=== PATIENT | male | born 1930 | race Caucasian/White ===

== ENCOUNTER 2017-04-15 10:46 | Emergency (ER) | payer OTHER, MEDICARE ==
[~2017-04-15] VITALS: Ht 170.2 cm; Wt 81.6 kg
[~2017-04-15 10:46] MED LIST: CIPROFLOXACIN500 MG PO; DILAUDID2 M1 PO; DIVALPROEX SOD500 M2 PO; FLOMAX(MONOGRA0.4 MG PO; LISINOPRIL AND1 TAB PO; NORVASC5 M1 PO; PERCOCET 325 MG1 TA2 PO; SAW PALMETTO160 M1 PO; TEMAZEPAM15 M1 PO; VITAB121000 PO; VITAMIN B6100 MG PO; VITAMIN C500 M3 PO; VITAMIN D31000 UNI2 PO
--- NOTE | 2017-04-15 11:06 | ED GENERAL ADULT ---
History of Present Illness General Chief Complaint: General Adult Stated Complaint: BIBA FOR GENERAL WERAKNESS Source: patient Exam Limitations: no limitations Allergies Coded Allergies: NO KNOWN ALLERGIES (03/26/13) Reconcile Medications Amlodipine Besylate (Norvasc) 5 MG TABLET 1 TAB PO DAILY HTN (Reported) Cholecalciferol (Vitamin D3) 1,000 UNIT TABLET 1 TAB PO DAILY VITAMIN SUPPORT (Reported) Divalproex Sodium 500 MG TABLET.DR 1 TAB PO DAILY LEG TREMOR (Reported) Hydromorphone HCl (Dilaudid) 2 MG TABLET 1 TAB PO BID PAIN (Reported) Lisinopril 10 MG TABLET 1 TAB PO DAILY HEART (Reported) Naloxegol Oxalate (Movantik) 25 MG TABLET 1 TAB PO DAILY GI (Reported) Sennosides/Docusate Sodium (Senna S Tablet) 8.6 MG-50 MG TABLET 1 TAB PO DAILY CONSTIPATION (Reported) Temazepam 15 MG CAPSULE 1 CAP PO QPM SLEEP (Reported) Triage Note: 87 Y/O MALE BIBA FROM HOME FOR EVAL OF LIGHTHEADEDNESS AND DIZZINESS X "FEW DAYS". PT STATES "I JUST DONT FEEL GOOD". PER , PT HAS BEEN EATING AND DRINKING WELL; HAVE INCREASED PO FLUIDS OVER THE LAST FEW DAYS WITH NO CHANGE IN SYMPTOMS. PT DENIES PAIN. DENIES RECENT FALLS. DENIES COUGH, SOB OR URI SYMPTOMS. RESIDENT INTO EVAL Triage Nurses Notes Reviewed? yes Onset: Gradual Duration: day(s): (2) Timing: multiple episodes today Injury Environment: home Severity: moderate No Modifying Factors: none HPI: 87 yo M with PMH of pancreatic cancer, hypertension presents to the ED with concerns of lightheadedness and dizziness for the past two days. The patient states that he has been doing well for the most part but since the past two days he has been feeling more weak and lightheaded. The symptoms are present all day and worsen with walking. He uses a walker. The states that she thought the patient may be dehydrated and she gave him extra fluids to drink. He has a good appetite. No other symptoms or concerns expressed by the family or the patient. He has opted for no intervention for his pancreatic cancer. (Selin CARRIZALES,Mary) Vital Signs & Intake/Output Vital Signs & Intake/Output Vital Signs Date Time Temp Pulse Resp B/P B/P Pulse O2 O2 Flow FiO2 Mean Ox Delivery Rate 04/15 1628 97.2 77 18 135/63 95 Room Air 04/15 1548 97.8 79 18 142/77 95 Room Air 04/15 1227 66 154/75 04/15 1122 Room Air 04/15 1047 98.0 73 22 154/79 96 Room Air (Justine CARRIZALES,Chicho Guillory) Past History Travel History Traveled to [place] past 21 day No Medical History Any Pertinent Medical History? see below for history Neurological: tremor left leg EENT: NONE Cardiovascular: hypertension Respiratory: NONE Gastrointestinal: NONE Hepatic: NONE Renal: NONE Musculoskeletal: chronic back pain Psychiatric: NONE Endocrine: NONE Blood Disorders: NONE Cancer(s): pancreatic cancer DISABILITY INSURANCE CLAIM EXAMINER/Reproductive: NONE Surgical History Surgical History: cervical fusion lumbar laminectomy craniotomy Psychosocial History What is your primary language Iranian Tobacco Use: Never used Family History Hx Contributory? No (Mary Smallwood MD) Review of Systems Review of Systems Constitutional: Denies: chills, fever. EENTM: Denies: throat pain. Respiratory: Denies: cough, short of breath. Cardiovascular: Denies: chest pain, palpitations. GI: Denies: abdominal pain, nausea. Genitourinary: Reports: no symptoms. Musculoskeletal: Denies: back pain, joint pain. Skin: Reports: no symptoms. Neurological/Psychological: Reports: no symptoms. (Mary Smallwood MD) Physical Exam Physical Exam General Appearance: well developed/nourished, no apparent distress, alert, awake Head: atraumatic, normal appearance Eyes: Bilateral: normal appearance. Ears, Nose, Throat: normal ENT inspection Neck: normal inspection Respiratory: normal breath sounds, chest non-tender, lungs clear Cardiovascular: regular rate/rhythm Gastrointestinal: soft, non-tender Extremities: no edema Neurologic/Psych: awake, alert, oriented x 3 Core Measures ACS in differential dx? No CVA/TIA Diagnosis: No Sepsis Present: No Sepsis Focused Exam Completed? No (Mary Smallwood MD) Progress Differential Diagnoses I considered the following diagnoses in my evaluation of the patient: [ orthostatic hypotension, dehydration, anemia] Initial ED EKG: NSR (Mary Smallwood MD) Plan of Care: Orders Procedure Date/time Status Regular Diet 04/15 L Active PT Evaluate & Treat 04/15 1454 Active MISTAKE 04/15 1112 Active URINALYSIS 04/15 110 Complete COMPREHENSIVE METABOLIC PANEL 04/15 110 Complete CBC WITHOUT DIFFERENTIAL 04/15 1105 Complete Laboratory Tests 04/15/17 1448: Urine Color YEL, Urine Clarity CLEAR, Urine pH 6.5, Ur Specific [place] 1.015, Urine Protein NEG, Urine Ketones NEG, Urine Nitrite NEG, Urine Bilirubin NEG, Urine Urobilinogen 1.0, Ur Leukocyte Esterase NEG, Ur Microscopic EXAM NOT REQUIRED, Urine Hemoglobin NEG, Urine Glucose NEG 04/15/17 1125: Anion Gap 12, Estimated GFR > 60, BUN/Creatinine Ratio 33.3 H, Glucose 142 H, Calcium 9.7, Total Bilirubin 0.8, AST 18, ALT 18 L, Alkaline Phosphatase 57, Total Protein 7.4, Albumin 3.9, Globulin 3.5, Albumin/Globulin Ratio 1.1 04/15/17 110: CBC w Diff NO MAN DIFF REQ, RBC 4.49 L, MCV 99.2 H, MCH 33.9 H, MCHC 34.2, RDW 13.2, MPV 8.5, Gran % 63.9, Lymphocytes % 26.5, Monocytes % 8.5, Eosinophils % 0.7, Basophils % 0.4, Absolute Granulocytes 5.0, Absolute Lymphocytes 2.0, Absolute Monocytes 0.7 H, Absolute Eosinophils 0.1, Absolute Basophils 0 (Justine CARRIZALES,Chicho Guillory) Departure Departure Time of Disposition: 1636 Disposition: HOME OR SELF CARE Condition: Stable Clinical Impression Primary Impression: Dizziness Referrals: Yumiko CARRIZALES,Shreyas Chicas (PCP/Family) Additional Instructions: Please follow up with your primary care physician within one week of discharge. Please return to the ED for any worsening symptoms or concerns. Departure Forms: Customer Survey General Discharge Information (Mary Smallwood MD) Resident Co-Sign Statement Statement: ED Attending supervision documentation- [X] I saw and evaluated the patient. I have also reviewed all the pertinent lab results and diagnostic results. I agree with the findings and the plan of care as documented in the Resident's documentation. [] I have reviewed the ED Record and agree with the Resident's documentation. [] Additions or exceptions (if any) to the Resident's note and plan are summarized below: [] (Justine CARRIZALES,Chicho Guillory) Critical Care Note Critical Care Note Critical Care Time: non-applicable (Selin CARRIZALES,Mary)
[2017-04-15 11:57] LABS: ABSOLUTE BASOPHIL COUNT 0 /CUMM (0.0-0.2); ABSOLUTE EOSINOPHIL COUNT 0.1 /CUMM (0.0-0.7); ABSOLUTE MONOCYTE COUNT 0.7 /CUMM (0.10-0.60); BASOPHIL % 0.4 % (0.0-2.0); EOSINOPHIL % 0.7 % (0-5); GRANULOCYTE % 63.9 % (42.2-75.2); HEMATOCRIT 44.6 % (42-52); MEAN CORPUSCULAR HGB 33.9 PG (27.0-31.0); MEAN CORPUSCULAR HGB CONC 34.2 G/DL (33.0-37.0); MEAN CORPUSCULAR VOLUME 99.2 FL (80.0-94.0); MEAN PLATELET VOLUME 8.5 FL (7.4-10.4); PLATELET COUNT 224 /CUMM (130-400); RBC DISTRIBUTION WIDTH 13.2 % (11.5-14.5); RED BLOOD CELL CT 4.49 /CUMM (4.70-6.10); WHITE BLOOD CELL COUNT 7.8 /CUMM (4.8-10.8)
[2017-04-15] MEDS ORDERED: MOVANTIK25 M1 PO (12:41)
[2017-04-15] MEDS ORDERED: LISINOPRIL10 M1 PO (12:41)
[2017-04-15] MEDS ORDERED: SENNA S TABLET1 EACH PO (12:42)
[2017-04-15 16:28] VITALS: BP 135/63
== END 2017-04-15 17:07 ==
LOC: ERH 10:46
PROVIDERS: Internal Medicine
DX: R42 Dizziness and giddiness (principal)
CPT/HCPCS: 81003

== ENCOUNTER 2017-04-25 09:49 | Inpatient (IN) | payer OTHER, MEDICARE ==
[~2017-04-25] VITALS: Ht 170.2 cm; Wt 79.0 kg
[~2017-04-25 09:49] MED LIST changes: +LISINOPRIL10 M1 PO; +MOVANTIK25 M1 PO; +SENNA S TABLET1 EACH PO
--- NOTE | 2017-04-25 10:34 | ED MVC/FALL/TRAUMA COMPLAINT ---
See Addendum History of Present Illness General Chief Complaint: Fall Stated Complaint: FALL Source: patient, family Exam Limitations: no limitations Vital Signs & Intake/Output Vital Signs & Intake/Output Vital Signs Date Time Temp Pulse Resp B/P B/P Pulse O2 O2 Flow FiO2 Mean Ox Delivery Rate 04/25 1417 98.1 74 18 142/67 98 Room Air 04/25 1310 98.2 66 18 140/70 98 Room Air 04/25 1153 97.9 68 18 138/74 98 Room Air 04/25 1100 98 Room Air 04/25 1001 97.7 70 18 143/74 96 Room Air Allergies Coded Allergies: NO KNOWN ALLERGIES (03/26/13) Reconcile Medications Amlodipine Besylate (Norvasc) 5 MG TABLET 1 TAB PO DAILY HTN (Reported) Cholecalciferol (Vitamin D3) 1,000 UNIT TABLET 1 TAB PO DAILY VITAMIN SUPPORT (Reported) Divalproex Sodium 500 MG TABLET.DR 1 TAB PO DAILY LEG TREMOR (Reported) Hydromorphone HCl (Dilaudid) 2 MG TABLET 1 TAB PO BID PAIN (Reported) Lisinopril 10 MG TABLET 1 TAB PO DAILY HEART (Reported) Naloxegol Oxalate (Movantik) 25 MG TABLET 1 TAB PO DAILY GI (Reported) Sennosides/Docusate Sodium (Senna S Tablet) 8.6 MG-50 MG TABLET 1 TAB PO DAILY CONSTIPATION (Reported) Temazepam 15 MG CAPSULE 1 CAP PO QPM SLEEP (Reported) Triage Note: BIBA FROM HOME, C/O WEAKNESS AND DIZZINESS X A "FEW WEEKS", FELL LAST NIGHT OUT OF CHAIR. LANDED ON LEFT ARM. DENIES CHEST PAIN OR SOB. HX OF PANCREATIC CANCER, WAS ON HOME HOSPICE BUT DC\\D. Triage Nurses Notes Reviewed? yes Onset: Gradual Duration: constant Timing: recent history Severity: moderate Severity Numbers: 5 Loss of Consciousness: no loss of consciousness HPI: Patient is a 87-year-old male with a past medical history of known pancreatic cancer, hypertension who was evaluated at [facility] emergency room on April 15 for concerns of lightheaded sensation and dizziness patient was evaluated and was safely discharged however patient was brought in by ambulance stating that since his evaluation at [facility] emergency room he he has still been complaining of dizziness and general his weakness however yesterday while getting up from a chair he fell forward striking his head to the floor and his left elbow to piece of furniture resulting in skin tears. Patient was unable to get up on his own where EMS arrived to his residency helped patient up and the patient was advised to present to the emergency room however he declines transfer. Patient states that he was too weak to get out of bed today where EMS was called. Patient currently denies any fever chills chest pain and arm pain jaw pain nausea vomiting leg swelling or hemoptysis cough shortness of breath dysuria hematuria or pain. Patient states that in 2000 he had a meningioma resection and since has had right-sided body paresthesia and diminished sensation since. (Rolf Dwyer) Past History Travel History Traveled to [place] past 21 day No Medical History Any Pertinent Medical History? see below for history Neurological: tremor left leg EENT: NONE Cardiovascular: hypertension Respiratory: NONE Gastrointestinal: NONE Hepatic: NONE Renal: NONE Musculoskeletal: chronic back pain Psychiatric: NONE Endocrine: NONE Blood Disorders: NONE Cancer(s): pancreatic cancer CHOIR DIRECTOR/Reproductive: NONE Surgical History Surgical History: cervical fusion lumbar laminectomy craniotomy Psychosocial History What is your primary language Serbian Tobacco Use: Never used ETOH Use: denies use Family History Hx Contributory? No (Rolf Dwyer) Review of Systems Review of Systems Constitutional: Reports: no symptoms. Eyes: Reports: no symptoms. Ears, Nose, Throat, Mouth: Reports: no symptoms. Respiratory: Reports: no symptoms. Cardiovascular: Reports: no symptoms. Gastrointestinal/Abdominal: Reports: no symptoms. Genitourinary: Reports: no symptoms. Musculoskeletal: Reports: see HPI. Skin: Reports: no symptoms. Neurological/Psychological: Reports: see HPI. All Other Systems: Reviewed and Negative (Rolf Dwyer) Physical Exam Physical Exam General Appearance: no apparent distress, alert, comfortable Head: atraumatic Eyes: Bilateral: normal appearance, PERRL, EOMI. Ears, Nose, Throat, Mouth: hearing grossly normal Neck: normal inspection, supple Respiratory: normal breath sounds, chest non-tender, no respiratory distress Cardiovascular: regular rate/rhythm Peripheral Pulses: 2+ radial (R) Gastrointestinal: normal bowel sounds, soft, GENERALIZED POINT TENDERNESS NOTED Extremities: evidence of injury Neurologic/Psych: no motor/sensory deficits Comments: Bilateral upper extremity and lower extremity nontender full active range of motion normal inspection Diagram Body: 1) Noted 4 cm superficial mildly gaping skin tear with full active range of motion with surrounding point tenderness and ecchymosis no active bleeding no exposed bone Core Measures ACS in differential dx? No CVA/TIA Diagnosis No Sepsis Present: No Sepsis Focused Exam Completed? No (Jaqui DIAZ,Rolf) Progress Differential Diagnosis: abd injury, C/T/L spine injury, ext injury, ICH, pelvis injury, pnemothorax, spinal cord injury Plan of Care: Orders Procedure Date/time Status Regular Diet 03 D Active Pathway - chart 04/25 1534 Active PT Evaluate & Treat 04/25 1531 Active Pathway - chart 04/25 1531 Active House Staff 04/25 1531 Active Code Status 04/25 1531 Active Patient Data 04/25 1518 Active OXYGEN SETUP (GEN) 04/25 1517 Active Saline Lock 04/25 1517 Active Admit to inpatient 04/25 1517 Active Vital Signs 04/25 1517 Active Activity/Ambulation 04/25 1517 Active Code Status 04/25 1517 Complete URINALYSIS 04/25 1039 Complete TROPONIN LEVEL 04/25 1039 Complete COMPREHENSIVE METABOLIC PANEL 04/25 1039 Complete CBC WITHOUT DIFFERENTIAL 04/25 1039 Complete EKG 04/25 1039 Active Intake & Output 04/25 1001 Active VTE Mechanical Prophylaxis 04/25 UNK Active Precautions 04/25 UNK Active Nutritional Intake, Monitor 04/25 UNK Active NUTRITIONAL CONSULT 04/25 UNK Active Current Medications Sig/Elaina Start time Last Medication Dose Stop Time Status Admin Temazepam 15 MG QPM 04/25 2200 AC (Restoril) Acetaminophen 650 MG Q6P PRN 04/25 1545 AC (Tylenol) Acetaminophen 1,000 MG Q6P PRN 04/25 1545 AC (Ofirmev) Docusate Sodium 100 MG BID PRN 04/25 1545 AC (Colace) Polyethylene Glycol 17 GM AT BEDTIME PRN 04/25 1545 AC (Miralax) Enoxaparin Sodium 40 MG DAILY 04/25 1531 AC (Lovenox) Senna/Docusate Sodium 1 TAB DAILY 04/25 1522 AC (Senokot S) Amlodipine Besylate 5 MG DAILY 04/25 1520 AC (Norvasc) Cholecalciferol 1,000 IU DAILY 04/25 1520 AC (Vitamin D) Divalproex Sodium 500 MG DAILY 04/25 1520 AC (Depakote) Hydromorphone HCl 2 MG BID 04/25 1520 AC (Dilaudid) Lisinopril 10 MG DAILY 04/25 1520 AC (Prinivil) Laboratory Tests 04/25/17 1308: Urine Color YEL, Urine Clarity CLEAR, Urine pH 7.0, Ur Specific [place] 1.015, Urine Protein NEG, Urine Ketones NEG, Urine Nitrite NEG, Urine Bilirubin NEG, Urine Urobilinogen 1.0, Ur Leukocyte Esterase NEG, Ur Microscopic EXAM NOT REQUIRED, Urine Hemoglobin NEG, Urine Glucose NEG 04/25/17 1055: Anion Gap 10, Estimated GFR > 60, BUN/Creatinine Ratio 18.6, Glucose 105 H, Calcium 9.6, Total Bilirubin 0.8, AST 14 L, ALT 14 L, Alkaline Phosphatase 66, Troponin I < 0.01, Total Protein 7.2, Albumin 3.7, Globulin 3.5, Albumin/ Globulin Ratio 1.1, CBC w Diff NO MAN DIFF REQ, RBC 4.42 L, MCV 100.0 H, MCH 33.5 H, MCHC 33.5, RDW 12.9, MPV 7.7, Gran % 55.7, Lymphocytes % 33.2, Monocytes % 8.7, Eosinophils % 1.7, Basophils % 0.7, Absolute Granulocytes 4.1, Absolute Lymphocytes 2.4, Absolute Monocytes 0.6, Absolute Eosinophils 0.1, Absolute Basophils 0 Patient upon initial presentation was alert and oriented no apparent distress clear lungs auscultation patient denies any pain however upon palpation of abdomen he was tender the patient has known pancreatic cancer. To the left elbow sterile water and peroxide was applied for cleaning of the skin tear wound using benzoin and Steri-Strips margins were revised There was a superficial skin abrasion adjacent to the region where bacitracin and Telfa was applied Javid wrap was then applied to left elbow pre-and post-neurovascular was intact x- rays were unremarkable for osseous injury Patient CT scan of head and cervical spine were unremarkable for acute injury or process. Patient and family member was discussed with with concerns of worsening pancreatic mass Nursing staff indicate that patient has profound weakness and is unable to get out of bed. No source of infection upon admission however patient is a significant fall risk and may require short-term placement Discussed admission with case management Diagnostic Imaging: Viewed by Me: CT Scan. Radiology Impression: SEE COMMENTS Initial ED EKG: normal intervals, normal p-waves, 70 NSR, Comments: PATIENT: KEITH KEENE PRESENT AGE: 87 PATIENT ACCOUNT NO: [id number] : 32 LOCATION: [facility] ORDERING PHYSICIAN: Rolf DIAZ SERVICE DATE: 04/25/17 EXAM TYPE: CAT - CT ABD & PELVIS W IV CONTRAST EXAMINATION: CT ABDOMEN AND PELVIS WITH CONTRAST CLINICAL INFORMATION: Abdominal pain. Pancreatic carcinoma. COMPARISON: 09/28/2014 and 08/27/2010. TECHNIQUE: Multidetector volumetric imaging was performed of the abdomen and pelvis following IV administration of 95 mL of Omnipaque 320 intravenous contrast. Sagittal and coronal reformatted images were obtained on the technologist's workstation. DLP: 630.16 mGy-cm FINDINGS: LUNG BASES: Atelectasis is present at the lung bases. No infiltrates or effusions are seen. LIVER, GALLBLADDER, AND BILIARY TREE: There are 3 tiny hypodensities present in the left lobe of the liver, the largest measures 5 mm. These could be cysts but are indeterminate because of their small size and they were not present with certainty at the time of the prior study. No bile duct dilatation is seen. The gallbladder is unremarkable with no evidence of radiopaque gallstones, gallbladder wall thickening, or obvious pericholecystic inflammatory changes. PANCREAS: There is rounding of the pancreatic head and associated marked dilatation of the pancreatic duct distally with atrophy. Given the history of pancreatic carcinoma, presumably this represents the patient's tumor. Some increased density is seen in the mesentery in this region which was also present in 2011. SPLEEN: Granulomas are noted in an otherwise unremarkable spleen. ADRENAL GLANDS: Unremarkable. KIDNEYS AND URETERS: A left-sided parapelvic cyst is noted. A tiny hyperdense mass is seen on the right consistent with a small hemorrhagic cyst which is unchanged since 2011. BLADDER: Unremarkable. GASTROINTESTINAL TRACT: The small and large bowel is unremarkable. The appendix is unremarkable. ABDOMINAL WALL: No significant hernia is appreciated. LYMPH NODES: Normal. VASCULAR: Unremarkable. PELVIC VISCERA: The prostate is enlarged measuring 5.03 x 5.76 x 5.20 cm. No other pelvic masses are seen. OSSEOUS STRUCTURES: Marked degenerative changes are present in the spine at nearly all levels. IMPRESSION: New pancreatic head mass with marked ductal dilatation distal to this with atrophy of the gland. Findings are consistent with the given history of pancreatic carcinoma. Three tiny, new, low-attenuation liver lesions. Given the history, these could be suspicious for metastatic disease and follow up is recommended. These are too small to even consider a biopsy. DICTATED BY: Gino Myers MD DATE/TIME DICTATED:04/25/171436 CLASSICS TEACHER:PATEL PATIENT: ROCKY MARCOS PRESENT AGE: 54 PATIENT ACCOUNT NO: [id number] : [birth year] LOCATION: [facility] ORDERING PHYSICIAN: Rolf DIAZ SERVICE DATE: 04/25/17 EXAM TYPE: RAD - XRY-HUMERUS, RIGHT EXAMINATION: XR HUMERUS, RIGHT CLINICAL INFORMATION: Right mid shaft fracture concern. Patient reports fall 4 days ago with increased pain. COMPARISON: None TECHNIQUE: AP and lateral views of the right humerus. FINDINGS: There is an oblique fracture of the midshaft of the right humerus with approximately one shaft width medial and anterior displacement. There is moderate medial angulation. There is mild override. IMPRESSION: Displaced and angulated mid humeral shaft fracture as described above. DICTATED BY: Ramo Steen MD DATE/TIME DICTATED:04/25/171224 CLASSICS TEACHER:PATEL DATE/TIME TRANSCRIBED:04/25/171224 CONFIDENTIAL, DO NOT COPY WITHOUT APPROPRIATE AUTHORIZATION. <Electronically signed in Other Vendor System> SIGNED BY: Ramo Steen MD [id number] (Rolf Dwyer) Departure Departure Disposition: HOME OR SELF CARE Condition: Stable Clinical Impression Primary Impression: Weakness Secondary Impressions: Pancreatic cancer Referrals: Shreyas Calderon MD (PCP/Family) Departure Forms: Customer Survey General Discharge Information Admission Note Spoke With: Brian Pollack MD Documentation of Exam: Documentation of any treatments & extenuating circumstances including Concerns Regarding Discharge (functional status, medication knowledge or non-compliance, living conditions, etc.) that warrant an admission rather than observation: [PT REQUIRES ADMISSION FOR PROFOUND WEAKNESS AND INABILITY TO AMBULATE, PT REQUIRES IV FLUIDS, NUTRITIONAL CONSULTATION, PT consultation, possible short-term placement in rehabilitation pain management] (Rolf Dwyer) PA/RESIDENCE LEASING AGENT Co-Sign Statement Statement: ED Attending supervision documentation- x I saw and evaluated the patient. I have also reviewed all the pertinent lab results and diagnostic results. I agree with the findings and the plan of care as documented in the PA's/RESIDENCE LEASING AGENT's documentation. I have reviewed the ED Record and agree with the PA's/RESIDENCE LEASING AGENT's documentation. Additions or exceptions (if any) to the PAs/RESIDENCE LEASING AGENT's note and plan are summarized below: [] (Bill CARRIZALES,Keagan)
[2017-04-25 11:02] LABS: ABSOLUTE BASOPHIL COUNT 0 /CUMM (0.0-0.2); ABSOLUTE EOSINOPHIL COUNT 0.1 /CUMM (0.0-0.7); ABSOLUTE GRANULOCYTE CT 4.1 /CUMM (1.4-6.5); ABSOLUTE LYMPH COUNT 2.4 /CUMM (1.2-3.4); ABSOLUTE MONOCYTE COUNT 0.6 /CUMM (0.10-0.60); BASOPHIL % 0.7 % (0.0-2.0); EOSINOPHIL % 1.7 % (0-5); GRANULOCYTE % 55.7 % (42.2-75.2); HEMATOCRIT 44.2 % (42-52); MEAN CORPUSCULAR HGB 33.5 PG (27.0-31.0); MEAN CORPUSCULAR HGB CONC 33.5 G/DL (33.0-37.0); MEAN PLATELET VOLUME 7.7 FL (7.4-10.4); PLATELET COUNT 217 /CUMM (130-400); RBC DISTRIBUTION WIDTH 12.9 % (11.5-14.5); RED BLOOD CELL CT 4.42 /CUMM (4.70-6.10); WHITE BLOOD CELL COUNT 7.4 /CUMM (4.8-10.8)
--- NOTE | 2017-04-25 12:48 | RADIOLOGY REPORT ---
EXAMINATION: XR ELBOW, LEFT CLINICAL INFORMATION: Left elbow trauma. Patient reports left elbow swollen after fall. COMPARISON: None TECHNIQUE: AP, bilateral oblique, and lateral views of the left elbow. FINDINGS: There is a tiny ossification adjacent to the medial humeral epicondyle which appears smooth and is likely chronic. There is no definite acute fracture or malalignment. There is no obvious joint effusion but the lateral view is not obtained with 90 degrees of flexion and his suboptimal for joint effusion evaluation. There are small marginal osteophytes involving the left elbow joint with regions of mild joint space narrowing. 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 No definite acute fracture.
--- NOTE | 2017-04-25 14:19 | CT SCAN REPORT ---
EXAMINATION: CT HEAD AND CERVICAL SPINE CLINICAL INFORMATION: Fall. Head strike. COMPARISON: CT scan of the head 03/08/2011. TECHNIQUE: Exploration Engineer images were obtained. CT acquisition of the head and cervical spine was performed without intravenous administration of contrast. Data was reformatted into multiplanar images at the acquisition workstation. DLP: 1011.95 mGy-cm. FINDINGS: Head: There is no evidence of acute intracranial hemorrhage or abnormal extra axial collection. There are chronic changes related to the resection of a left parietal lobe mass. No intracranial mass effect or midline shift. Lateral and third ventricles are prominent and there is proportionate prominence of the subarachnoid spaces reflecting a moderate degree of global parenchymal volume loss. Nair-white matter differentiation is grossly preserved and there is no evidence of acute territorial infarct. The and skull base is intact. No mastoid or middle ear effusion. Visualized paranasal sinuses are well-aerated. Cervical spine: There are chronic changes of diffuse idiopathic skeletal hyperostosis with prominent bridging disc osteophyte complexes that fuse multiple consecutive vertebral segments within the cervical spine and thoracic spine. Chronic changes of a laminoplasty extending from C3 to C7 is noted and there is a unilateral fusion construct that is composed of lateral mass screws extending from C3 to C7. Alignment is maintained. No evidence of acute fracture. No abnormal prevertebral soft tissue swelling. 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 The canal is not well assessed due to the extent of streak artifact related to the fusion hardware. Soft tissues of the neck are unremarkable. Visualized lung apices are clear. IMPRESSION: Head: No acute intracranial hemorrhage. Chronic changes related to the resection of a left parietal lobe mass. There is moderate global parenchymal volume loss and chronic small vessel ischemic changes within the periventricular white matter. Cervical spine: Chronic changes of diffuse idiopathic skeletal hyperostosis. Old laminoplasty changes extending from C3 to C7 are noted and there is a spinal fusion construct composed of lateral mass screws extending from C3 C7. No evidence of hardware failure. No evidence of acute cervical spinal fracture.
--- NOTE | 2017-04-25 14:58 | CT SCAN REPORT ---
EXAMINATION: CT ABDOMEN AND PELVIS WITH CONTRAST CLINICAL INFORMATION: Abdominal pain. Pancreatic carcinoma. COMPARISON: 09/28/2014 and 08/27/2010. TECHNIQUE: Multidetector volumetric imaging was performed of the abdomen and pelvis following IV administration of 95 mL of Omnipaque 320 intravenous contrast. Sagittal and coronal reformatted images were obtained on the technologist's workstation. DLP: 630.16 mGy-cm FINDINGS: LUNG BASES: Atelectasis is present at the lung bases. No infiltrates or effusions are seen. LIVER, GALLBLADDER, AND BILIARY TREE: There are 3 tiny hypodensities present in the left lobe of the liver, the largest measures 5 mm. These could be cysts but are indeterminate because of their small size and they were not present with certainty at the time of the prior study. No bile duct dilatation is seen. The gallbladder is unremarkable with no evidence of radiopaque gallstones, gallbladder wall thickening, or obvious pericholecystic inflammatory changes. PANCREAS: There is rounding of the pancreatic head and associated marked dilatation of the pancreatic duct distally with atrophy. Given the history of pancreatic carcinoma, presumably this represents the patient's tumor. Some increased density is seen in the mesentery in this region which was also present in 2011. SPLEEN: Granulomas are noted in an otherwise unremarkable spleen. ADRENAL GLANDS: Unremarkable. KIDNEYS AND URETERS: A left-sided parapelvic cyst is noted. A tiny hyperdense mass is seen on the right consistent with a small hemorrhagic cyst which is unchanged since 2011. BLADDER: Unremarkable. GASTROINTESTINAL TRACT: The small and large bowel is unremarkable. The appendix is unremarkable. ABDOMINAL WALL: No significant hernia is appreciated. LYMPH NODES: Normal. VASCULAR: Unremarkable. PELVIC VISCERA: The prostate is enlarged measuring 5.03 x 5.76 x 5.20 cm. No other pelvic masses are seen. OSSEOUS STRUCTURES: Marked degenerative changes are present in the spine at nearly all levels. IMPRESSION: New pancreatic head mass with marked ductal dilatation distal to this with atrophy of the gland. Findings are consistent with the given history of pancreatic carcinoma. Three tiny, new, low-attenuation liver lesions. Given the history, these could be suspicious for metastatic disease and follow up is recommended. These are too small to even consider a biopsy.
--- NOTE | 2017-04-25 15:30 | History & Physical ---
Chaya San MD,[facility] 04/25/17 1530: General Information and HPI MD Statement: I have seen and personally examined KEITH KEENE and documented this H&P. The patient is a 87 year old M who presented with a patient stated chief complaint of [dizziness and fall]. Source of Information: patient, family History of Present Illness: Patient is 89 y M with PMH of pancreatic cancer, hypertension, tremor, possible seizure, chronic back pain presented to ED with chief complaint of dizziness and fall. Patient was present at the bedside contributing in history taking. Briefly patient is a known case of pancreatic cancer since 2 years ago, denied, surgical intervention, was originally made hospice then later changed to palliative care due to life expectancy. Last night patient went to reach his walker, missed his walker and hit the floor with his head, EMS was called but patient didn't want to take come to ER. This morning he was more dizzy, and had lightheadedness, EMS was called and he was transferred to ED. Patient reported gradual increase in weakness, and dizziness over the last 2 weeks. He also visited ED last week for lightheadedness and dizziness, was diagnosed with a possible viral infection and discharge, however after that he had decreased ambulation and was lying in bed most of the time. Patient didn't reported frequent falls (2 event over last year). 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 Patient denied taking any extra pain medication. No increased pain, no change in diet, no shortness of breathing, no chest pain, no change in bowel movement, no upper respiratory tract infection symptoms. In baseline patient lives with , ambulates with walker and has visiting nurse once a week for palliative care. Allergies/Medications Allergies: Coded Allergies: NO KNOWN ALLERGIES (03/26/13) Home Med list Amlodipine Besylate (Norvasc) 5 MG TABLET 1 TAB PO DAILY HTN (Reported) Cholecalciferol (Vitamin D3) 1,000 UNIT TABLET 1 TAB PO DAILY VITAMIN SUPPORT (Reported) Divalproex Sodium 500 MG TABLET.DR 1 TAB PO DAILY LEG TREMOR (Reported) Hydromorphone HCl (Dilaudid) 2 MG TABLET 1 TAB PO BID PAIN (Reported) Lisinopril 10 MG TABLET 1 TAB PO DAILY HEART (Reported) Naloxegol Oxalate (Movantik) 25 MG TABLET 1 TAB PO DAILY GI (Reported) Sennosides/Docusate Sodium (Senna S Tablet) 8.6 MG-50 MG TABLET 1 TAB PO DAILY CONSTIPATION (Reported) Temazepam 15 MG CAPSULE 1 CAP PO QPM SLEEP (Reported) Past History Travel History Traveled to [place] past 21 day No Medical History Neurological: tremor left leg EENT: NONE Cardiovascular: hypertension Respiratory: NONE Gastrointestinal: NONE Hepatic: NONE Renal: NONE Musculoskeletal: chronic back pain Psychiatric: NONE Endocrine: NONE Blood Disorders: NONE Cancer(s): pancreatic cancer PUBLIC POLICY MEDIATOR/Reproductive: NONE Surgical History Surgical History: cervical fusion lumbar laminectomy craniotomy Past Family/Social History Psychosocial History ETOH Use: denies use Review of Systems Review of Systems Constitutional: Reports: see HPI. Exam & Diagnostic Data Last 24 Hrs of Vital Signs/I&O Vital Signs Date Time Temp Pulse Resp B/P B/P Pulse O2 O2 Flow FiO2 Mean Ox Delivery Rate 04/25 1705 97.2 80 18 172/85 96 Room Air 03/ 1417 98.1 74 18 142/67 98 Room Air 03/ 1310 98.2 66 18 140/70 98 Room Air 03/ 1153 97.9 68 18 138/74 98 Room Air 03/05 1100 98 Room Air 03/05 1001 97.7 70 18 143/74 96 Room Air Intake & Output / 1600 03/05 0800 03/ 0000 Intake Total 0 Output Total 320 Balance -320 Intake, Oral 0 Output, Urine 320 Patient 180 lb Weight Weight Reported by Patient Measurement Method Physical Exam General Appearance Alert, Oriented X3, Cooperative, No Acute Distress Skin Temp/Moisture Exam: Warm/Dry Sepsis Skin Exam (color): Normal for Ethnicity HEENT Atraumatic, EOMI, Mucous Membr. moist/pink Cardiovascular Normal S1, Normal S2 Lungs Clear to Auscultation, Normal Air Movement Abdomen Soft, No Tenderness Neurological Normal Speech, Strength at 5/5 X4 Ext, history of right side weakness, currently R=L Extremities No Edema Last 24 Hrs of Labs/Wade: Laboratory Tests 04/25/17 1308: Urine Color YEL, Urine Clarity CLEAR, Urine pH 7.0, Ur Specific [place] 1.015, Urine Protein NEG, Urine Ketones NEG, Urine Nitrite NEG, Urine Bilirubin NEG, Urine Urobilinogen 1.0, Ur Leukocyte Esterase NEG, Ur Microscopic EXAM NOT REQUIRED, Urine Hemoglobin NEG, Urine Glucose NEG 04/25/17 1055: Anion Gap 10, Estimated GFR > 60, BUN/Creatinine Ratio 18.6, Glucose 105 H, Calcium 9.6, Total Bilirubin 0.8, AST 14 L, ALT 14 L, Alkaline Phosphatase 66, Troponin I < 0.01, Total Protein 7.2, Albumin 3.7, Globulin 3.5, Albumin/ Globulin Ratio 1.1, CBC w Diff NO MAN DIFF REQ, RBC 4.42 L, MCV 100.0 H, MCH 33.5 H, MCHC 33.5, RDW 12.9, MPV 7.7, Gran % 55.7, Lymphocytes % 33.2, Monocytes % 8.7, Eosinophils % 1.7, Basophils % 0.7, Absolute Granulocytes 4.1, Absolute Lymphocytes 2.4, Absolute Monocytes 0.6, Absolute Eosinophils 0.1, Absolute Basophils 0 Assessment/Plan Assessment: Patient is 89 y M presented with dizziness and fall Recent resting in bed more often Palliative care for pancreatic cancer PMH: pancreatic cancer, hypertension, tremor, possible seizure, chronic back pain VS, Ph Ex at admission: BP 143/74, AK 70, RR 18, no fever Labs at admission: Hgb 14.8, MCV 100, others insignificant, BEP insignificant Imagings at admission: CT Head: No acute intracranial hemorrhage. Chronic changes related to the resection of a left parietal lobe mass. There is moderate global parenchymal volume loss and chronic small vessel ischemic changes within the periventricular white matter. CT Cervical spine: Chronic changes of diffuse idiopathic skeletal hyperostosis. Old laminoplasty changes extending from C3 to C7 are noted and there is a spinal fusion construct composed of lateral mass screws extending from C3 C7. No evidence of hardware failure. No evidence of acute cervical spinal fracture. Abdomen/Pelvic: New pancreatic head mass with marked ductal dilatation distal to this with atrophy of the gland. Findings are consistent with the given history of pancreatic carcinoma. Three tiny, new, low-attenuation liver lesions. Given the history, these could be suspicious for metastatic disease and follow up is recommended. These are too small to even consider a biopsy. Patient was admitted to telemetry floor for management of following conditions: Fall Most likely related to deconditioning as patient was more resting in bed recently. Patient denied use of extra pain medication. 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 No definite acute fracture. - will follow Chronic medical conditions: Pancreatic cancer Patient was having palliative care. -We will continue home medication -Pain medication as needed DNR/DNI regular diet DVT ppx: ALPS and Lovenox As Ranked By This Provider Problem List: 1. Pancreatic cancer 2. Dizziness 3. Weakness Core Measures/Misc (11/07) Acute Coronary Syndrome ACS Diagnosis: No Congestive Heart Failure Congestive Heart Failure Diagnosis No Cerebrovascular Accident CVA/TIA Diagnosis: No VTE (View Protocol) VTE Risk Factors Age>40 No Mechanical VTE Prophylaxis d/t N/A MechProphylax Ordered No VTE Pharm Prophylaxis d/t NA PharmProphylax ordered Sepsis (View protocol) Sepsis Present: No TessyTy 04/25/17 1741: Resident Review Statement Resident Statement: examined this patient, discussed with software development intern, agreed with software development intern, discussed with family, reviewed EMR data (avail), discussed with nursing , discussed with case mgmt, reviewed images, amended to note Other Findings: Patient was visited and examined. Labs, and images, and EKG were reviewed. Discussed with the software development intern and agree with above . This is a very pleasant 87-year-old gentleman presented for fall and weakness. He has [facility] signifiacnt for pancreatic cancer, hypertension, tremor, possible seizure, chronic back pain and chronic right lower extremity weakness (surgical procedure sequalae; hemangioma removal 10 years ago, pancreatic cancer on palliative care. Patient lives with his ; uses walker for ambulation; needs help for personal hygiene and batting. For the past 10 years after the acquired right-sided weakness due to surgical removal of the hemangioma patient gradually decline physically. However according to and patient himself he was doing well up until April 15, when he came down to its upper respiratory tract viral infection and dizziness which brought him to [facility] emergency room. Patient was discharged home on the same day however his dizziness did not improve. Due to his new onset dizziness patient's ambulatory status deteriorated and he ended up spending more time than his baseline in that. As a consequence of bedrest patient became weaker, which became more pronounced for the past for 5 days. Last night patient had an episode of mechanical fall when try to reach for his walker. Denies any shortness of breath, palpitation, dizziness by that time, loss of consciousness, seizure-like activity, incontinence. + HT. 911 was called last night but patient refused to visited the emergency room. This morning he developed lightheadedness and dizziness and decided to seek medical attention. ROS: Generalized weakness; denies weight loss, change in appetite, abdominal pain, GI symptoms. Vital signs are stable. Physical exam GA: Lying comfortably in bed not in acute distress HEET: Mucosal membranes are moist; no lymphadenopathy; atraumatic Cardiovascular: S1, S2 no murmur Lungs are clear Abdomen: Mild epigastric abdominal tenderness in deep palpation; no guarding no rebound Extremities: Bruises on the left elbow; no tremor; no edema Neurology exam: Alert and oriented 3 cranial nerves grossly normal; strength 5 out of 5 upper extremity bilateral; decreased in both lower extremities left more than right; reflexes normal; Babinski downward; called to rigidity both breasts and ankle (+ macrographia; progressive shuffled gait). Pertinent data Normal CBC; mild transaminitis an otherwise normal biochemistry; normal UA EKG: NSRR; stable right bundle branch block and left axis deviation and left anterior fascicular block CT scan of the abdomen and pelvis was obtained: Showed New pancreatic head mass with marked ductal dilatation distal to this with atrophy of the gland. Findings are consistent with the given history of pancreatic carcinoma. Three tiny, new, low-attenuation liver lesions. Given the history, these could be suspicious for metastatic disease and follow up is recommended. These are too small to even consider a biopsy. Assessment This is an 87-year-old gentleman with past medical history of pancreatic cancer on palliative care, and limited ambulation was admitted for deconditioning and gait instability. List of differential diagnosis #1 gait instability and fall: For the past 10 years patient has had progressive deconditioning however after April 15 (viral syndrome) he had spent more time in bed. As the result his muscle tone has decreased dramatically which in turn limited his ambulation further. The other thing that I noticed during my physical exam was his cogwheel rigidity which was coupled with viewpoints in his HPI (confirmed by his ) including worsening shuffling gait and worsening micrographia. Putting all this findings together I think he could have an underlying, undiagnosed Parkinson disease. Other medical conditions: Hypertension, pain management, opiate-induced constipation. 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 Espinosa regarding abnormal neurology findings and physical exam * Bowel regimen * Regular diet * resume his depaoke for focal seizure * Fall precaution Lovenox 40 units for DVT prophylaxis DNR/DNI Brian Pollack MD 04/25/172026: Attending MD Review Statement Attending Statement Attending MD Statement: examined this patient, discuss w/resident/PA/SCOUT, agreed w/resident/PA/SCOUT, discussed with family, reviewed EMR data (avail), reviewed images, amended to note Attending Assessment/Plan: The patient is an 89 yo male with h/o HTN, seizure disorder, chronic back pain, & frequent falls who was diagnosed with pancreatic cancer 2 years ago by his GI physician at [facility] in [place]. He elected to not undergo surgical intervention and was subsequently place on Hospice care at home. As he has survived longer than expected, he was changed to palliative care. He presents in the [facility] ED with c/o progressive weakness and difficulty ambulating. While attempting to get out of a chair at home he grabbed his walker and fell on his left side having noted he was lightheaded with perhaps some slight vertigo. He denied LOC. He was seen in the ED 2 weeks ago for similar symptoms. He denied any nausea/vomiting and his po intake has been good as per his . He denied any fever or chills. He does also have a h/o hemangioma and neurosurgical intervention. He is on some chronic Dilaudid, however denied taking more than prescribed. He denied any dyspnea, chest pain, or palpitations. He has noted some weakness on the right side of his body since resection of left sided hemangioma. He has advanced directives and is DNR/DNI status (given to equal opportunity representative to scan into [facility]). CT abd/pel did show new pancreatic head mass with marked ductal dilatation and 3 small liver lesions (possible metastases). Physical Exam: VS: T 98.1, P 74, R 18, BP 142/67, PO 98% RA HEENT: eyes- PERRLA, EOMI, no nystagmus eugenie- moist mucosa w/o lesions Neck: no JVD or bruits Chest: Diminished breath sounds at bases, clear Cor: RRR nl S1, S2 w/o murm Abd: BS+, soft, no significant tenderness Ext: no significant edema, pulses 1+ Neuro: alert & oriented x 3, non-focal exam, generalized weakness noted Labs/Tests- as above Impression/Plan: #Profound Weakness/Frequent Falls- etiology unclear. The patient has been eating well and keeps up with nutrition. No significant weight loss noted. May be related to deconditioning. Other possibility include paraneoplastic syndrome. 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 Plan: Will admit to general medicine and follow neurologic symptoms. May need Neurology consult. Physical Therapy/Occupational therapy consults. Check CPK. May need STR (SNF). #Pancreatic Cancer- there has been disease progression with CT abd/pel showing a new pancreatic head mass compressing ducts. Also possible small hepatic metastases. He stated he has not been imaged recently. He has no significant abdominal pain at present. The patient had declined surgery 2 years prior when offered and now has had progression of disease. Was initially on Hospice service at home, however now on Palliative care as he has not progressed enough to require Hospice. He has had no significant weight loss. Plan: Will obtain records from [facility]. Continue Palliative Care. As above, may need rehab. Consider full Palliative Care. #Chronic Back Pain- ? secondary to pancreatic cancer. Plan: Continue Dilaudid prn- consider Gabapentin as noted by Senior Oracle Applications Developer. #Essential HTN- BP stable. Plan: Continue Lisinopril/Amlodipine and monitor BP closely. #?Seizures/H/O Meningioma- unclear or if just RLS. I did not witness gait, however resident suggested possible Parkinsonian. No seizure activity noted by . Plan: Agree with continuing Divalproex. Check Depakote level. Consider Neurology evaluation. DNR/DNI as per his prior wishes/Advanced Directives
[2017-04-25 19:09] VITALS: BP 138/80
--- NOTE | 2017-04-25 21:10 | Admission Certification ---
Admission Certification Certification Statement - As attending physician, I certify that at the time of - admission, based on clinical presentation, severity of - symptoms, need for further diagnostic testing and - therapeutic interventions, and risk of adverse outcomes - without in-hospital treatment, in my clinical assessment, - this patient requires an acute hospital stay for a minimum - of two nights or longer. I have also considered psychsocial - factors such as support system, advanced age, financial - issues, cognitive issues, and failed out-patient treatments, - past re-admission history, safety of patient, and lack of - compliance as applicable. Specific rationale supporting this admission is: The patient presents with profound weakness and multiple falls. CT showing progression of pancreatic cancer with duct compression and ?liver metastases. Need PT/OT, possible neurologic evaluation. Probable STR.
[2017-04-25 23:08] VITALS: BP 146/84
[2017-04-26 07:24] VITALS: BP 144/88
--- NOTE | 2017-04-26 11:19 | PN- Housestaff ---
Chaya San MD,[facility] 04/26/17 1118: Subjective Follow-up For: Fall Pancreatic cancer Subjective: Patient visited today, was lying in bed comfortably in no acute distress, was alert and oreinted. making jokes, had no complaints. No fever or chills, no shortness of breathing, no chest pain, no other events. Review of Systems Constitutional: Reports: see HPI. Objective Last 24 Hrs of Vital Signs/I&O Vital Signs Date Time Temp Pulse Resp B/P B/P Pulse O2 O2 Flow FiO2 Mean Ox Delivery Rate 04/26 1027 97.6 72 20 144/88 04/26 1026 97.6 72 20 144/88 03/ 0724 97.6 72 20 144/88 96 Room Air / 2308 98.2 68 12 146/84 94 Room Air / 1909 97.8 69 20 138/80 96 Room Air 03/ 1821 98.0 77 18 149/77 96 Room Air 03/ 1705 97.2 80 18 172/85 96 Room Air / 1417 98.1 74 18 142/67 98 Room Air 03/05 1310 98.2 66 18 140/70 98 Room Air Intake & Output 04/26 1600 03/06 0800 03/06 0000 Intake Total 250 250 Output Total 400 400 Balance -150 -150 Intake, IV 10 10 Intake, Oral 240 240 Output, Urine 400 400 Patient 168 lb 169 lb 180 lb Weight Weight Reported by Patient Measurement Method Physical Exam General Appearance: Alert, Oriented X3, Cooperative, No Acute Distress Skin Temp/Moisture Exam: Warm/Dry Sepsis Skin Exam (color): Normal for Ethnicity HEENT: Atraumatic, EOMI, Mucous Membr. moist/pink Cardiovascular: Normal S1, Normal S2 Lungs: Clear to Auscultation, Normal Air Movement Abdomen: Soft, No Tenderness Neurological: grossly no change compared to yesterday Extremities: No Edema Current Medications: Current Medications Sig/Elaina Start time Last Medication Dose Route Stop Time Status Admin Acetaminophen 650 MG Q6P PRN 04/25 1545 AC PO Acetaminophen 1,000 MG Q6P PRN 04/25 1545 AC IV Amlodipine Besylate 5 MG DAILY 04/25 1520 AC / PO 1027 Cholecalciferol 1,000 IU DAILY 04/25 1520 AC 04/26 PO 1026 Divalproex Sodium 500 MG DAILY 04/25 1520 DC PO Docusate Sodium 100 MG BID PRN 04/25 1545 AC PO Enoxaparin Sodium 40 MG DAILY 04/25 1531 AC 04/26 SC 1028 Hydromorphone HCl 2 MG BID 04/25 1520 AC 04/26 PO 1026 Lisinopril 10 MG DAILY 04/25 1520 AC 04/26 PO 1026 Polyethylene Glycol 17 GM AT BEDTIME PRN 04/25 1545 AC PO Senna/Docusate Sodium 1 TAB DAILY 04/25 1522 AC 04/26 PO 1027 Sodium Chloride 500 ML BOLUS ONE 04/25 1130 DC 04/25 IV 04/25 1229 1151 Temazepam 15 MG QPM 04/25 2200 AC 04/25 PO 2113 Valproic Acid 500 MG DAILY 04/25 2300 AC 04/26 PO 1028 Last 24 Hrs of Lab/Wade Results Last 24 Hrs of Labs/Mics: Laboratory Tests 04/26/17 1111: Creatine Kinase Pending, Valproic Acid Pending 04/25/17 1308: Urine Color YEL, Urine Clarity CLEAR, Urine pH 7.0, Ur Specific [place] 1.015, Urine Protein NEG, Urine Ketones NEG, Urine Nitrite NEG, Urine Bilirubin NEG, Urine Urobilinogen 1.0, Ur Leukocyte Esterase NEG, Ur Microscopic EXAM NOT REQUIRED, Urine Hemoglobin NEG, Urine Glucose NEG Assessment/Plan Assessment: Patient is 89 y M presented with dizziness and fall Recent resting in bed more often Palliative care for pancreatic cancer PMH: pancreatic cancer, hypertension, tremor, possible seizure, chronic back pain VS, Ph Ex at admission: BP 143/74, MT 70, RR 18, no fever Labs at admission: Hgb 14.8, MCV 100, others insignificant, BEP insignificant Imagings at admission: CT Head: No acute intracranial hemorrhage. Chronic changes related to the resection of a left parietal lobe mass. There is moderate global parenchymal volume loss and chronic small vessel ischemic changes within the periventricular white matter. CT Cervical spine: Chronic changes of diffuse idiopathic skeletal hyperostosis. Old laminoplasty changes extending from C3 to C7 are noted and there is a spinal fusion construct composed of lateral mass screws extending from C3 C7. No evidence of hardware failure. No evidence of acute cervical spinal fracture. Abdomen/Pelvic: New pancreatic head mass with marked ductal dilatation distal to this with atrophy of the gland. Findings are consistent with the given history of pancreatic carcinoma. Three tiny, new, low-attenuation liver lesions. Given the history, these could be suspicious for metastatic disease and follow up is recommended. These are too small to even consider a biopsy. Patient was admitted to telemetry floor for management of following conditions: Fall Most likely related to deconditioning as patient was more resting in bed recently. Patient denied use of extra pain medication. 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 No definite acute fracture. - will follow - dressing change daily Chronic medical conditions: Pancreatic cancer Patient was having palliative care. -We will continue home medication -Pain medication as needed DNR/DNI regular diet DVT ppx: ALPS and Lovenox Problem List: 1. Pancreatic cancer 2. Fall 3. Physical deconditioning Pain Ratin Pain Location: None Pain Goal: Pain 4 or less Pain Plan: Continue current plan Tomorrow's Labs & Rationales: No Lab Jordi Stoner 04/26/17 1127: Attending MD Review Statement Attending Statement Attending MD Statement: examined this patient, discuss w/resident/PA/MACHINE JOINER CEMENTER, agreed w/resident/PA/MACHINE JOINER CEMENTER, discussed with family, reviewed EMR data (avail), discussed with nursing, discussed with case mgmt, reviewed images, amended to note Attending Assessment/Plan: 87 o/m with pmh of pancreatic cancer and 3 lesions in liver likely metastatic initially at hospice/comfort measures admitted here for profound weakness and general physical deconditoning. PT eval pending. Home meds continued. Pain control. Anticipate dc to STR and then hospcie. Inform family.
[2017-04-26 16:36] VITALS: BP 137/77
--- NOTE | 2017-04-26 17:21 | Cons- Neurology ---
General Information and HPI Consulting Request Date of Consult: 04/26/17 Requested By: Jordi Stoner MD Reason for Consult: Dizziness, general weakness Source of Information: patient, old records Exam Limitations: no limitations History of Present Illness: 87-year-old man admitted yesterday when he arose and reached for his walker but fell striking his head. He reports rotatory vertigo chest developed gradually over the past couple of weeks along with a sense of generalized weakness. Vertigo is worsened with certain changes of head position but not accompanied by nausea or vomiting. He does have long-standing hearing loss a sense of pressure fullness in either ear. He was last seen in the office in December for a long-standing and gradually progressive gait instability. 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 There was a degree of ataxia and a suspicion of cervical myelopathy but in December no overt clinical signs, deconditioning was also suspected. As this time he denies neck pain but does report urinary incontinence and constipation. He does not describe any increasing lateralized symptomatology. 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 Allergies/Medications Allergies: Coded Allergies: NO KNOWN ALLERGIES (03/26/13) Home Med List: Amlodipine Besylate (Norvasc) 5 MG TABLET 1 TAB PO DAILY HTN (Reported) Cholecalciferol (Vitamin D3) 1,000 UNIT TABLET 1 TAB PO DAILY VITAMIN SUPPORT (Reported) Divalproex Sodium 500 MG TABLET.DR 1 TAB PO DAILY LEG TREMOR (Reported) Hydromorphone HCl (Dilaudid) 2 MG TABLET 1 TAB PO BID PAIN (Reported) Lisinopril 10 MG TABLET 1 TAB PO DAILY HEART (Reported) Naloxegol Oxalate (Movantik) 25 MG TABLET 1 TAB PO DAILY GI (Reported) Sennosides/Docusate Sodium (Senna S Tablet) 8.6 MG-50 MG TABLET 1 TAB PO DAILY CONSTIPATION (Reported) Temazepam 15 MG CAPSULE 1 CAP PO QPM SLEEP (Reported) Current Medications: Current Medications Sig/Elaina Start time Last Medication Dose Route Stop Time Status Admin Acetaminophen 650 MG Q6P PRN 04/25 1545 AC PO Acetaminophen 1,000 MG Q6P PRN 04/25 1545 AC IV Amlodipine Besylate 5 MG DAILY 04/25 1520 AC 04/26 PO 1027 Cholecalciferol 1,000 IU DAILY 04/25 1520 AC 04/26 PO 1026 Divalproex Sodium 500 MG DAILY 04/25 1520 DC PO Docusate Sodium 100 MG BID PRN 04/25 1545 AC PO Enoxaparin Sodium 40 MG DAILY 04/25 1531 AC 04/26 SC 1028 Hydromorphone HCl 2 MG BID 04/25 1520 AC 04/26 PO 1026 Lisinopril 10 MG DAILY 04/25 1520 AC 04/26 PO 1026 Polyethylene Glycol 17 GM AT BEDTIME PRN 04/25 1545 AC PO Senna/Docusate Sodium 1 TAB DAILY 04/25 1522 AC 04/26 PO 1027 Temazepam 15 MG QPM 04/25 2200 AC 04/25 PO 2113 Valproic Acid 500 MG DAILY 04/25 2300 AC 04/26 PO 1028 Review of Systems Review of Systems: On systems review he denies ear pain hearing loss. No vision complaints. No ENT symptoms, no neck pain, change in voice or difficulty swallowing. He does report some GI distress but denied chest pain or dyspnea on a trip are under good control at this time on Depakote all other systems were negative for noncontributory Past History Travel History Traveled to [place] past 21 day No Medical History Blood Transfusion Hx: No Neurological: tremor left leg EENT: NONE Cardiovascular: hypertension Respiratory: NONE Gastrointestinal: NONE Hepatic: NONE Renal: NONE Musculoskeletal: chronic back pain Psychiatric: NONE Endocrine: NONE Blood Disorders: NONE Cancer(s): pancreatic cancer BRASS POLISHER/Reproductive: NONE Surgical History Surgical History: cervical fusion lumbar laminectomy craniotomy Psychosocial History Where Do You Live? Home Smoking Status: Never Smoked ETOH Use: denies use Exam & Diagnostic Data Vital Signs and I&O Vital Signs Date Time Temp Pulse Resp B/P B/P Pulse O2 O2 Flow FiO2 Mean Ox Delivery Rate 04/26 1636 97.4 69 20 137/77 94 04/26 1617 Room Air 04/26 1027 97.6 72 20 144/88 / 1026 97.6 72 20 144/88 / 0724 97.6 72 20 144/88 96 Room Air 04/25 2308 98.2 68 12 146/84 94 Room Air 04/25 1909 97.8 69 20 138/80 96 Room Air 04/25 1821 98.0 77 18 149/77 96 Room Air Intake & Output 04/26 1600 04/26 0800 04/26 0000 Intake Total 240 250 250 Output Total 400 400 Balance 240 -150 -150 Intake, IV 10 10 Intake, Oral 240 240 240 Output, Urine 400 400 Patient 168 lb 161 lb 180 lb Weight Weight Reported by Patient Measurement Method Physical Exam: On exam he appears generally well and in no distress. Neck range of motion markedly limited status post surgery but no tenderness. 1-2+ foot and ankle edema, skin warm and dry, pulses intact. Alert, oriented, no evident cognitive or language errors No dysarthria About 3 mm equal round and reactive Unable to visualize fundi Ocular movements full with right beating nystagmus which seemed greater with head tilted to the right. Could not perform full Hallpike maneuvers his neck No facial weakness or asymmetry, no sensory loss. Lower cranial nerves normal motor exam disclosed increased tone and mild weakness of the right arm. Tendon reflexes symmetric, bilateral Babinski signs. No gross ataxia of the left upper extremity Sensation preserved in both lower extremities Last 48 Hours of Lab Results: Laboratory Tests 04/26 04/25 1111 1308 Chemistry Creatine Kinase (55 - 170 U/L) 49 L Toxicology Valproic Acid (50 - 120 ug/mL) 31.1 L Urines Urine Color (YEL,AMB,STR) YEL Urine Clarity (CLEAR) CLEAR Urine pH (5.0 - 8.0) 7.0 Ur Specific [place] (1.001 - 1.035) 1.015 Urine Protein (NEG,<30 MG/DL) NEG Urine Ketones (NEG) NEG Urine Nitrite (NEG) NEG Urine Bilirubin (NEG) NEG Urine Urobilinogen (0.1 - 1.0 EU/dl) 1.0 Ur Leukocyte Esterase (NEG) NEG Ur Microscopic EXAM NOT REQUIRED Urine Hemoglobin (NEG) NEG Urine Glucose (N MG/DL) NEG 04/25 1055 Chemistry Sodium (137 - 145 mmol/L) 140 Potassium (3.5 - 5.1 mmol/L) 4.3 Chloride (98 - 107 mmol/L) 106 Carbon Dioxide (22 - 30 mmol/L) 24 Anion Gap (5 - 16) 10 BUN (9 - 20 mg/dL) 13 Creatinine (0.7 - 1.2 mg/dL) 0.7 Estimated GFR (>60 ml/min) > 60 BUN/Creatinine Ratio (7 - 25 %) 18.6 Glucose (65 - 99 mg/dL) 105 H Calcium (8.4 - 10.2 mg/dL) 9.6 Total Bilirubin (0.2 - 1.3 mg/dL) 0.8 AST (17 - 59 U/L) 14 L ALT (21 - 72 U/L) 14 L Alkaline Phosphatase (< 127 U/L) 66 Troponin I (<0.11 ng/ml) < 0.01 Total Protein (6.3 - 8.2 g/dL) 7.2 Albumin (3.5 - 5.0 g/dL) 3.7 Globulin (1.9 - 4.2 gm/dL) 3.5 Albumin/Globulin Ratio (1.1 - 2.2 %) 1.1 Hematology CBC w Diff NO MAN DIFF REQ WBC (4.8 - 10.8 /CUMM) 7.4 RBC (4.70 - 6.10 /CUMM) 4.42 L Hgb (14.0 - 18.0 G/DL) 14.8 Hct (42 - 52 %) 44.2 MCV (80.0 - 94.0 FL) 100.0 H MCH (27.0 - 31.0 PG) 33.5 H MCHC (33.0 - 37.0 G/DL) 33.5 RDW (11.5 - 14.5 %) 12.9 Plt Count (130 - 400 /CUMM) 217 MPV (7.4 - 10.4 FL) 7.7 Gran % (42.2 - 75.2 %) 55.7 Lymphocytes % (20.5 - 51.1 %) 33.2 Monocytes % (1.7 - 9.3 %) 8.7 Eosinophils % (0 - 5 %) 1.7 Basophils % (0.0 - 2.0 %) 0.7 Absolute Granulocytes (1.4 - 6.5 /CUMM) 4.1 Absolute Lymphocytes (1.2 - 3.4 /CUMM) 2.4 Absolute Monocytes (0.10 - 0.60 /CUMM) 0.6 Absolute Eosinophils (0.0 - 0.7 /CUMM) 0.1 Absolute Basophils (0.0 - 0.2 /CUMM) 0 Imaging/Other Studies: CT scanning: Head: No acute intracranial hemorrhage. Chronic changes related to the resection of a left parietal lobe mass. There is moderate global parenchymal volume loss and chronic small vessel ischemic changes within the periventricular white matter. Cervical spine: Chronic changes of diffuse idiopathic skeletal hyperostosis. Old laminoplasty changes extending from C3 to C7 are noted and there is a spinal fusion construct composed of lateral mass screws extending from C3 C7. No evidence of hardware failure. No evidence of acute cervical spinal fracture. Assessment/Plan Assessment: Vertiginous dizziness, recent onset, new complaint. 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 Cannot determine with certainty if vertigo is central or peripheral but would recommend starting antiplatelet treatment for vascular risk reduction and Generalized weakness: No actual muscular weakness detected, I suspect he is actually complaining of worsening gait instability. Cervical myelopathy suspected in view of his past neck surgeries and bilateral Babinski signs but he is not a candidate for any further surgical intervention Other treatable causes of gait instability should be considered and excluded. 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
[2017-04-26 21:53] VITALS: BP 91/52
[2017-04-27 07:33] VITALS: BP 100/60
--- NOTE | 2017-04-27 07:56 | PN- Housestaff ---
Chaya San MD,[facility] 04/27/17 0756: Subjective Follow-up For: Deconditioning Fall Subjective: Patient visited today, was lying in bed comfortably in no acute distress, was alert and oriented. No fever or chills, no shortness of breathing, no chest pain, no other events. Patient had no complaint. Patient had a session with physical therapy. Patient was requesting to be discharged to rehabilitation to gain strength back. We'll plan to discharge after 3 nights of stay. Review of Systems Constitutional: Reports: see HPI. Objective Last 24 Hrs of Vital Signs/I&O Vital Signs Date Time Temp Pulse Resp B/P B/P Pulse O2 O2 Flow FiO2 Mean Ox Delivery Rate 04/27 09 100/58 04/27 0912 100/58 04/27 0733 97.4 69 20 100/60 96 Room Air 04/26 2153 97.5 82 18 91/52 94 Room Air 04/26 1636 97.4 69 20 137/77 94 06 1617 Room Air Intake & Output 04/27 1600 04/27 0800 04/27 0000 Intake Total 50 300 Output Total 25 250 Balance 25 50 Intake, Oral 50 300 Output, Urine 25 250 Patient 169 lb Weight Physical Exam General Appearance: Alert, Oriented X3, Cooperative, No Acute Distress Skin: No Significant Lesion Skin Temp/Moisture Exam: Warm/Dry Sepsis Skin Exam (color): Normal for Ethnicity HEENT: Atraumatic, EOMI, Mucous Membr. moist/pink Cardiovascular: Normal S1, Normal S2 Lungs: Clear to Auscultation, Normal Air Movement Abdomen: Soft, No Tenderness Neurological: Normal Speech, decreased strands at both LE, UE relatively normal 4/5 Current Medications: Current Medications Sig/Elaina Start time Last Medication Dose Route Stop Time Status Admin Acetaminophen 650 MG Q6P PRN 04/25 1545 AC PO Acetaminophen 1,000 MG Q6P PRN 04/25 1545 AC IV Amlodipine Besylate 5 MG DAILY 04/25 1520 AC 04/26 PO 1027 Aspirin 81 MG DAILY 04/27 1000 AC 04/27 PO 0912 Cholecalciferol 1,000 IU DAILY 04/25 1520 AC 04/27 PO 0912 Docusate Sodium 100 MG BID PRN 04/25 1545 AC PO Enoxaparin Sodium 40 MG DAILY 04/25 1531 AC 04/27 SC 0911 Hydromorphone HCl 2 MG BID 04/25 1520 AC 04/26 PO 2044 Lisinopril 10 MG DAILY 04/25 1520 AC 04/27 PO 0912 Meclizine HCl 12.5 MG TID PRN 04/27 0200 AC 04/27 PO 0912 Patient Medication 1 ED ONE ONE 04/27 1145 AC Teaching ED 04/27 1146 Polyethylene Glycol 17 GM AT BEDTIME PRN 04/25 1545 AC PO Senna/Docusate Sodium 1 TAB DAILY 04/25 1522 AC 04/27 PO 0912 Temazepam 15 MG QPM 04/25 2200 AC 04/26 PO 2044 Valproic Acid 500 MG DAILY 04/25 2300 AC 04/27 PO 0911 Last 24 Hrs of Lab/Wade Results Last 24 Hrs of Labs/Mics: Laboratory Tests 04/27/17 0745: Vitamin B12 644 Assessment/Plan Assessment: Patient is 89 y M presented with dizziness and fall Recent resting in bed more often Palliative care for pancreatic cancer PMH: pancreatic cancer, hypertension, tremor, possible seizure, chronic back pain VS, Ph Ex at admission: BP 143/74, UT 70, RR 18, no fever Labs at admission: Hgb 14.8, MCV 100, others insignificant, BEP insignificant Imagings at admission: CT Head: No acute intracranial hemorrhage. Chronic changes related to the resection of a left parietal lobe mass. There is moderate global parenchymal volume loss and chronic small vessel ischemic changes within the periventricular white matter. CT Cervical spine: Chronic changes of diffuse idiopathic skeletal hyperostosis. Old laminoplasty changes extending from C3 to C7 are noted and there is a spinal fusion construct composed of lateral mass screws extending from C3 C7. No evidence of hardware failure. No evidence of acute cervical spinal fracture. Abdomen/Pelvic: New pancreatic head mass with marked ductal dilatation distal to this with atrophy of the gland. Findings are consistent with the given history of pancreatic carcinoma. Three tiny, new, low-attenuation liver lesions. Given the history, these could be suspicious for metastatic disease and follow up is recommended. These are too small to even consider a biopsy. Patient was admitted to telemetry floor for management of following conditions: Fall Most likely related to deconditioning as patient was more resting in bed recently. Patient denied use of extra pain medication. 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 No definite acute fracture. - will follow - dressing change daily Chronic medical conditions: Pancreatic cancer Patient was having palliative care. -We will continue home medication -Pain medication as needed DNR/DNI regular diet DVT ppx: ALPS and Lovenox Problem List: 1. Weakness 2. Pancreatic cancer Pain Ratin Pain Location: None Pain Goal: Pain 4 or less Pain Plan: Continue current plan Tomorrow's Labs & Rationales: None Jordi Stoner 04/27/17 1029: Attending MD Review Statement Attending Statement Attending MD Statement: examined this patient, discuss w/resident/PA/MANAGER ACTIVITIES, agreed w/resident/PA/MANAGER ACTIVITIES, discussed with family, reviewed EMR data (avail), discussed with nursing, discussed with case mgmt, reviewed images, amended to note Attending Assessment/Plan: 87 o/m with pmh of pancreatic cancer and 3 lesions in liver likely metastatic initially at hospice/comfort measures admitted here for profound weakness and general physical deconditoning. PT eval recommend STR. Home meds continued. Pain control. Anticipate dc to STR. Inform family. Patient vitals stable.
[2017-04-27 14:27] VITALS: BP 127/79
[2017-04-27 21:37] VITALS: BP 143/76
[2017-04-28 06:27] VITALS: BP 110/64
--- NOTE | 2017-04-28 07:54 | PN- Housestaff ---
Chaya San MD,[facility] 04/28/17 0754: Subjective Follow-up For: Deconditioning/weakness Pancreatic cancer Oliguria Subjective: Patient visited today, was lying in bed comfortably in no acute distress, was alert and oriented. No fever or chills, no shortness of breathing, no chest pain, no other events. Was oliguric over the last 24 h, CT scan revealed enlarged prostate, bladder scan no residual, no edema or crackles in exam, Cr normal, BUn increased, UA not significant except for CaOx cristals. recieved one dose of meclizine. added PROBNP and increased fluid rate. We consider US of kidney if no improvement. Patient had no complaint. Patient was requesting to be discharged to rehabilitation to gain strength back. We'll plan to discharge after 3 nights of stay. May extend for one more day due to oliguria. Review of Systems Constitutional: Reports: see HPI. Objective Last 24 Hrs of Vital Signs/I&O Vital Signs Date Time Temp Pulse Resp B/P B/P Pulse O2 O2 Flow FiO2 Mean Ox Delivery Rate 04/28 0808 110/64 04/28 0627 97.5 61 20 110/64 94 Room Air 04/27 2137 97.8 73 22 143/76 95 Room Air / 1427 97.8 87 20 127/79 93 Intake & Output 04/28 1600 04/28 0800 04/28 0000 Intake Total 1200 520 Output Total 100 200 Balance 1100 320 Intake, IV 800 300 Intake, Oral 400 220 Output, Urine 100 200 Patient 170 lb Weight Weight Bed scale Measurement Method Physical Exam General Appearance: Alert, Oriented X3, Cooperative, No Acute Distress Skin: No Significant Lesion Skin Temp/Moisture Exam: Warm/Dry Sepsis Skin Exam (color): Normal for Ethnicity HEENT: Atraumatic, EOMI Cardiovascular: Normal S1, Normal S2 Lungs: Clear to Auscultation, Normal Air Movement Abdomen: No Tenderness, relatively tense Neurological: Normal Speech, no change in strengh compared to yesterday Extremities: No Edema Current Medications: Current Medications Sig/Elaina Start time Last Medication Dose Route Stop Time Status Admin Acetaminophen 650 MG Q6P PRN 04/25 1545 AC PO Acetaminophen 1,000 MG Q6P PRN 04/25 1545 AC / IV 0556 Amlodipine Besylate 5 MG DAILY 04/25 1520 AC 04/28 PO 0808 Aspirin 81 MG DAILY 04/27 1000 AC 04/28 PO 0808 Cholecalciferol 1,000 IU DAILY 04/25 1520 AC 04/28 PO 0808 Docusate Sodium 100 MG BID PRN 04/25 1545 AC 04/28 PO 0808 Enoxaparin Sodium 40 MG DAILY 04/25 1531 AC 04/28 SC 0808 Hydromorphone HCl 2 MG BID PRN 04/27 1425 AC 04/27 PO 1657 Hydromorphone HCl 2 MG BID 04/25 1520 DC 04/26 PO 2044 Lisinopril 10 MG DAILY 04/25 1520 AC 04/28 PO 0808 Meclizine HCl 12.5 MG TID PRN 04/27 0200 AC 04/27 PO 0912 Patient Medication 1 ED ONE ONE 04/27 1145 [place] 04/27 Teaching ED 04/27 1146 1145 Polyethylene Glycol 17 GM AT BEDTIME PRN 04/25 1545 AC PO Senna/Docusate Sodium 1 TAB DAILY 04/25 1522 AC 04/28 PO 0808 Sodium Chloride 1,000 ML Q10H 04/27 1415 AC 04/28 IV 0556 Temazepam 15 MG QPM 04/25 2200 AC 04/27 PO 2104 Valproic Acid 500 MG DAILY 04/25 2300 AC 04/28 PO 0812 Last 24 Hrs of Lab/Wade Results Last 24 Hrs of Labs/Mics: Laboratory Tests 04/27/17 1320: Anion Gap 15, Estimated GFR > 60, BUN/Creatinine Ratio 36.7 H, Pro-B- Natriuretic Pept Pending 04/27/17 1312: Urine Color CHARITO, Urine Clarity CLEAR, Urine pH 6.0, Ur Specific Dovray >= 1.030, Urine Protein TRACE H, Urine Ketones TRACE H, Urine Nitrite NEG, Urine Bilirubin NEG@ICTO, Urine Urobilinogen 1.0, Ur Leukocyte Esterase TRACE H, Ur Microscopic SEDIMENT EXAMINED, Urine WBC 1-3 H, Ur Epithelial Cells FEW, Urine Crystals 3+ CA OX H, Urine Bacteria FEW H, Urine Mucus FEW, Urine Hemoglobin NEG, Urine Glucose NEG Assessment/Plan Assessment: Patient is 89 y M presented with dizziness and fall Recent resting in bed more often Palliative care for pancreatic cancer PMH: pancreatic cancer, hypertension, tremor, possible seizure, chronic back pain VS, Ph Ex at admission: BP 143/74, LA 70, RR 18, no fever Labs at admission: Hgb 14.8, MCV 100, others insignificant, BEP insignificant Imagings at admission: CT Head: No acute intracranial hemorrhage. Chronic changes related to the resection of a left parietal lobe mass. There is moderate global parenchymal volume loss and chronic small vessel ischemic changes within the periventricular white matter. CT Cervical spine: Chronic changes of diffuse idiopathic skeletal hyperostosis. Old laminoplasty changes extending from C3 to C7 are noted and there is a spinal fusion construct composed of lateral mass screws extending from C3 C7. No evidence of hardware failure. No evidence of acute cervical spinal fracture. Abdomen/Pelvic: New pancreatic head mass with marked ductal dilatation distal to this with atrophy of the gland. Findings are consistent with the given history of pancreatic carcinoma. Three tiny, new, low-attenuation liver lesions. Given the history, these could be suspicious for metastatic disease and follow up is recommended. These are too small to even consider a biopsy. Patient was admitted to telemetry floor for management of following conditions: Fall Most likely related to deconditioning as patient was more resting in bed recently. Patient denied use of extra pain medication. 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 No definite acute fracture. - will follow - dressing change daily Chronic medical conditions: Pancreatic cancer Patient was having palliative care. -We will continue home medication -Pain medication as needed Oliguria Was oliguric over the last 24 h, CT scan revealed enlarged prostate at admission, bladder scan no residual, no edema or crackles in exam, Cr normal, BUN increased, UA not significant except for CaOx cristals. We planned to get US of kidney, added PROBNP and increased fluid rate. - PRO BNP - increase Fluid rate - US of kidney if no imprpoved - repeat US of bladder DNR/DNI regular diet DVT ppx: ALPS and Lovenox Problem List: 1. Fall 2. Pancreatic cancer 3. Oliguria Pain Ratin Pain Location: none Pain Goal: Pain 4 or less Pain Plan: COntinue current plan Tomorrow's Labs & Rationales: CBC BEP GeorgianaSandeep paganlori 04/28/17 1100: Attending MD Review Statement Attending Statement Attending MD Statement: examined this patient, discuss w/resident/PA/BOX ANNEALER, agreed w/resident/PA/BOX ANNEALER, discussed with family, reviewed EMR data (avail), discussed with nursing, discussed with case mgmt, reviewed images, amended to note Attending Assessment/Plan: 87 o/m with pmh of pancreatic cancer and 3 lesions in liver likely metastatic initially at hospice/comfort measures admitted here for profound weakness and general physical deconditoning. PT eval recommend STR. Home meds continued. Pain control. Nurse reported decreased urine output likely urinary retention, Cr normal. Please check urinary bladder scan and urine output. Discontinue opiods. Trial of oxybutnin. Anticipate dc to STR. Patient vitals stable.
[2017-04-28] MEDS ORDERED: ASPIRIN81 M4 PO (11:02)
--- NOTE | 2017-04-28 11:13 | Patient Discharge Instructions ---
Discharge Instructions General Discharge Information You were seen/treated for: Physical deconditioning Weakness Pancreatic cancer You had these procedures: None Watch for these problems: Severe weakness, dizziness, lightheadedness, pain, change in bowel movement, change in urination, or worsening of any symptoms Special Instructions: Please follow with your PCP within one week of discharge regarding continuation of your care. Please try to intake more fluids. Diet Continue normal diet: Yes Recommended Diet: Regular Additional DIET Information: Please include enough fluids in your regimen Activity Full Activity/No Limits: No Activity Self Limited: Yes (with assistance) Acute Coronary Syndrome Inclusion Criteria At DC or during hospital stay patient has or had the following: ACS DIAGNOSIS No Discharge Core Measures Meds if any: Prescribed or Continued at Discharge Meds if any: NOT Prescribed or Continued at Discharge Congestive Heart Failure Inclusion Criteria At DC or during hospital stay patient has or had the following: CHF DIAGNOSIS No Discharge Core Measures Meds if any: Prescribed or Continued at Discharge Meds if any: NOT Prescribed or Continued at Discharge Cerebrovascular accident Inclusion Criteria At DC or during hospital stay patient has or had the following: CVA/TIA Diagnosis No Discharge Core Measures Meds if any: Prescribed or Continued at Discharge Meds if any: NOT Prescribed or Continued at Discharge Venous thromboembolism Inclusion Criteria VTE Diagnosis No VTE Type NONE VTE Confirmed by (Test) NONE Discharge Core Measures - Per Current guidelines, there needs to be overlap - treatment for the first 5 days of Warfarin therapy. - If discharged on Warfarin prior to 5 days of - overlap therapy, the patient will need to be - assessed for post discharge needs including - *Post discharge parental anticoagulation - *Warfarin and/or parental anticoagulation education - *Follow up date to check INR post discharge At least 5 days overlap therapy as Inpatient No Meds if any: Prescribed or Continued at Discharge Note: Overlap Therapy is Warfarin and Anticoagulant Meds if any: NOT Prescribed or Continued at Discharge
[2017-04-28 14:02] VITALS: BP 133/78
[2017-04-28 21:28] VITALS: BP 120/73
--- NOTE | 2017-04-28 21:42 | ULTRASOUND REPORT ---
EXAMINATION: US RETROPERITONEAL COMPLETE (RENAL) CLINICAL INFORMATION: Oliguria despite hydration. COMPARISON: CT 04/25/2017 TECHNIQUE: Real-time imaging of the kidneys and bladder. FINDINGS: RIGHT KIDNEY: 1.5 x 5.1 x 5.3 cm (SAG x AP x TRV). The kidney is normal in size, contour, and echogenicity. Renal cortical thickness is normal. No calculi or focal parenchymal lesions. No hydronephrosis. LEFT KIDNEY: 12.5 x 6.9 x 5.2 cm (SAG x AP x TRV). The kidney is normal in size, contour, and echogenicity. Renal cortical thickness is normal. 2.8 cm simple left upper pole parapelvic cyst. No calculi. No hydronephrosis. BLADDER: Well-distended and normal. Bilateral ureteral jets are demonstrated. Prevoid bladder volume is 62.8 mL. Patient was unable to void. IMPRESSION: No hydronephrosis. 2.8 cm simple left upper pole renal parapelvic cyst.
[2017-04-29 06:54] VITALS: BP 134/72
--- NOTE | 2017-04-29 07:48 | Discharge Summary ---
Visit Information Visit Dates Admission Date: 04/25/17 Discharge Date: 04/29/2017 Hospital Course Course Attending Physician: Jordi Stoner MD Primary Care Physician: Shreyas Calderon MD Hospital Course: 89 yo male with h/o HTN, seizure disorder, chronic back pain, & frequent falls who was diagnosed with pancreatic cancer 2 years ago by his GI physician at [facility] in [place] elected to not undergo surgical intervention and was subsequently place on Hospice care at home, survived longer than expected, he was changed to palliative care. He presents in the [place] ED with c/o progressive weakness and difficulty ambulating. While attempting to get out of a chair at home he grabbed his walker and fell on his left side having noted he was lightheaded with perhaps some slight vertigo. Physical Exam: VS: T 98.1, P 74, R 18, BP 142/67, PO 98% RA HEENT: eyes- PERRLA, EOMI, no nystagmus eugenie- moist mucosa w/o lesions Neck: no JVD or bruits Chest: Diminished breath sounds at bases, clear Cor: RRR nl S1, S2 w/o murm Abd: BS+, soft, no significant tenderness Ext: no significant edema, pulses 1+ Neuro: alert & oriented x 3, non-focal exam, generalized weakness noted CT HEAD: No acute intracranial pathology. Patient was admitted to general and discharged on day 6, the following issues were addressed during stay: Fall Given the complaint of vertigo/dizziness, neurology was consulted. The Vertiginous dizziness was recent onset, new complaint. There was no bedside evidence or CT evidence of a stroke. There was finding of cerebral microvascular disease on CT, therefore neurology reccomended starting antiplatelet therapy since patient was already not on any. Neurology was not able ro determine with certainty if vertigo was central or peripheral. Neurology recommended physical therapy. Generalized weakness No actual muscular weakness detected, I suspect he is actually complaining of worsening gait instability. Given the history of neck surgeries and positive bilateral babinski, neurology had clinical suspicion of probable cervical myelopathy as one of the possible differential cause of weakness. However, given patient medical history including pancreatic cancer with suspected liver mets, he was never a candidate for surgery. PT team evaluated patient and reccomended short term rehab. #Oliguria During hospital stay, patient urine output decline to rate of less than 400 mls/ 24 hr signifying oliguria. Workup was done includine renal/bladder u/s with no significant findings. Labwork was suggestive of pre-renal azotemia given the elevated BUN/CR ratio. He was hydrated adequately with a good response on his urine output. Stable on discharge date. #Pancreatic Cancer there has been disease progression with CT abd/pel showing a new pancreatic head mass compressing ducts. Also possible small hepatic metastases. The patient had declined surgery 2 years prior when offered and now has had progression of disease. Was initially on Hospice service at home, however now on Palliative care as he has not progressed enough to require Hospice. History of chronic diseases: Chronic back pain, Essential HTN, Hx of Seizures No changes on medication or management was made. Allergies: Coded Allergies: NO KNOWN ALLERGIES (03/26/13) Pertinent Lab Results: SERVICE DATE: 04/25/17 EXAM TYPE: CAT - CT CERV SPINE WO IV CONTRAST; CT HEAD WO IV CONTRAST EXAMINATION: CT HEAD AND CERVICAL SPINE CLINICAL INFORMATION: Fall. Head strike. COMPARISON: CT scan of the head 03/08/2011. TECHNIQUE: Information Systems Operator images were obtained. CT acquisition of the head and cervical spine was performed without intravenous administration of contrast. Data was reformatted into multiplanar images at the acquisition workstation. DLP: 1011.95 mGy-cm. FINDINGS: Head: There is no evidence of acute intracranial hemorrhage or abnormal extra axial collection. There are chronic changes related to the resection of a left parietal lobe mass. No intracranial mass effect or midline shift. Lateral and third ventricles are prominent and there is proportionate prominence of the subarachnoid spaces reflecting a moderate degree of global parenchymal volume loss. Nair-white matter differentiation is grossly preserved and there is no evidence of acute territorial infarct. The and skull base is intact. No mastoid or middle ear effusion. Visualized paranasal sinuses are well-aerated. Cervical spine: There are chronic changes of diffuse idiopathic skeletal hyperostosis with prominent bridging disc osteophyte complexes that fuse multiple consecutive vertebral segments within the cervical spine and thoracic spine. Chronic changes of a laminoplasty extending from C3 to C7 is noted and there is a unilateral fusion construct that is composed of lateral mass screws extending from C3 to C7. Alignment is maintained. No evidence of acute fracture. No abnormal prevertebral soft tissue swelling. 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 The canal is not well assessed due to the extent of streak artifact related to the fusion hardware. Soft tissues of the neck are unremarkable. Visualized lung apices are clear. IMPRESSION: Head: No acute intracranial hemorrhage. Chronic changes related to the resection of a left parietal lobe mass. There is moderate global parenchymal volume loss and chronic small vessel ischemic changes within the periventricular white matter. Cervical spine: Chronic changes of diffuse idiopathic skeletal hyperostosis. Old laminoplasty changes extending from C3 to C7 are noted and there is a spinal fusion construct composed of lateral mass screws extending from C3 C7. No evidence of hardware failure. No evidence of acute cervical spinal fracture. DICTATED BY: Marco Antonio CARRIZALES,Catarino Barone Disposition Summary Disposition Principal Diagnosis: FALL Additional Diagnosis: Generalized weakness, Oliguria Discharge Disposition: SNF Discharge Instructions General Discharge Information Code Status: Do Not Resucitate/Intubat Patient's Diet: REGULAR Patient's Activity: TOLERATED Follow-Up Instructions/Appts: F/U WITH PCP WITHIN 1 WEEK Medications at Discharge Discharge Medications: Continue taking these medications: Temazepam (Temazepam) 15 MG CAPSULE 1 Capsule ORAL Every night Comments: Last Taken: 04/28/17 Time: 8:30 PM Divalproex Sodium (Divalproex Sodium) 500 MG TABLET.DR 1 Tablet ORAL DAILY Comments: Last Taken: 04/29/17 Time: 8:00 am Amlodipine Besylate (Norvasc) 5 MG TABLET 1 Tablet ORAL DAILY Comments: Last Taken: 04/29/17 Time: 8:00 am Hydromorphone HCl (Dilaudid) 2 MG TABLET 1 Tablet ORAL TWICE DAILY as needed for severe pain Comments: Last Taken: 04/26/17 Time: 8:30 PM Cholecalciferol (Vitamin D3) 1,000 UNIT TABLET 1 Tablet ORAL DAILY Comments: Last Taken: 04/29/17 Time: 8:00 am Lisinopril (Lisinopril) 10 MG TABLET 1 Tablet ORAL DAILY Qty = 90 Comments: Last Taken: 04/29/17 Time: 8:00 am Naloxegol Oxalate (Movantik) 25 MG TABLET 1 Tablet ORAL DAILY Qty = 30 Comments: NOT TAKEN IN HOSPITAL Sennosides/Docusate Sodium (Senna S Tablet) 8.6 MG-50 MG TABLET 1 Tablet ORAL DAILY Start taking the following new medications: Aspirin (Aspirin*) 81 MG TAB.CHEW 81 Milligram ORAL DAILY Qty = 60 Refills = 2 Comments: Last Taken: 04/29/17 Time: 8:00 AM Copies To: Yumiko CARRIZALES,Shreyas Chicas Attending MD Review Statement Documenting Attending: Jordi Stoner MD
--- NOTE | 2017-04-29 08:16 | PN- Housestaff ---
Chaya San MD,Ami 04/29/17 0816: Subjective Follow-up For: Deconditioning/weakness Pancreatic cancer Oliguria Subjective: Patient visited today, was lying in bed comfortably in no acute distress, was alert and oriented. No fever or chills, no shortness of breathing, no chest pain, no other events. Was oliguric over yesterday, CT scan revealed enlarged prostate, bladder scan no residual, no edema or crackles in exam, Cr normal, BUn increased, UA not significant except for CaOx cristals. recieved one dose of meclizine. PROBNP normal and increased fluid rate. US of the kidney no significant finding. With increased fluids had 400ML urine overnight. Stable to discharge. Review of Systems Constitutional: Reports: see HPI. Objective Last 24 Hrs of Vital Signs/I&O Vital Signs Date Time Temp Pulse Resp B/P B/P Pulse O2 O2 Flow FiO2 Mean Ox Delivery Rate 04/29 0800 134/72 04/29 0800 134/72 04/29 0654 97.4 68 20 134/72 96 04/28 2128 97.2 69 18 120/73 95 /08 1402 97.4 76 18 133/78 97 Room Air Intake & Output 04/29 1600 04/29 0800 04/29 0000 Intake Total 460 930 Output Total 375 100 Balance 85 830 Intake, IV 130 Intake, Oral 460 800 Output, Urine 375 100 Patient 174 lb Weight Physical Exam General Appearance: Alert, Oriented X3, Cooperative, No Acute Distress Skin: No Significant Lesion Skin Temp/Moisture Exam: Warm/Dry Sepsis Skin Exam (color): Normal for Ethnicity HEENT: Atraumatic, EOMI, Mucous Membr. moist/pink Neck: No JVD Cardiovascular: Normal S1, Normal S2 Lungs: Normal Air Movement, no crackles Abdomen: No Tenderness, relatively tense, palpable mass Neurological: Normal Speech, grossly no change compared to yesterday Extremities: No Edema Current Medications: Current Medications Sig/Elaina Start time Last Medication Dose Route Stop Time Status Admin Acetaminophen 650 MG .STK-MED ONE 04/28 225 DC PO 04/28 225 Acetaminophen 650 MG Q6P PRN 04/25 1545 AC 04/28 PO 2250 Acetaminophen 1,000 MG Q6P PRN 04/25 1545 AC 04/29 IV 0623 Amlodipine Besylate 5 MG DAILY 04/25 1520 AC 04/29 PO 0800 Aspirin 81 MG DAILY 04/27 1000 AC 04/29 PO 0800 Cholecalciferol 1,000 IU DAILY 04/25 1520 AC 04/29 PO 0800 Docusate Sodium 100 MG BID PRN 04/25 1545 AC 04/28 PO 0808 Enoxaparin Sodium 40 MG DAILY 04/25 1531 AC 04/29 SC 0801 Hydromorphone HCl 2 MG BID PRN 04/27 1425 DC 04/27 PO 1657 Lisinopril 10 MG DAILY 04/25 1520 AC 04/29 PO 0800 Meclizine HCl 12.5 MG TID PRN 04/27 0200 DC 04/27 PO 0912 Melatonin 5 MG AT BEDTIME 04/28 2200 AC 04/28 PO 2144 Polyethylene Glycol 17 GM AT BEDTIME PRN 04/25 1545 AC 04/29 PO 0800 Senna/Docusate Sodium 1 TAB DAILY 04/25 1522 AC 04/29 PO 0800 Sodium Chloride 1,000 ML Q10H 04/29 08 AC 04/29 IV 04/30 0159 0801 Temazepam 15 MG QPM 04/25 220 AC 04/28 PO 2020 Valproic Acid 500 MG DAILY 04/25 2300 AC 04/29 PO 0801 Last 24 Hrs of Lab/Wade Results Last 24 Hrs of Labs/Mics: Laboratory Tests 04/29/17 0737: Anion Gap 8, Estimated GFR > 60, BUN/Creatinine Ratio 40.0 H, CBC w Diff NO MAN DIFF REQ, RBC 3.87 L, MCV 99.4 H, MCH 33.8 H, MCHC 34.0, RDW 13.1, MPV 8.4, Gran % 72.4, Lymphocytes % 19.2 L, Monocytes % 6.3, Eosinophils % 1.8, Basophils % 0.3, Absolute Granulocytes 5.9, Absolute Lymphocytes 1.6, Absolute Monocytes 0.5, Absolute Eosinophils 0.1, Absolute Basophils 0 04/28/17 1920: Urine Color YEL, Urine Clarity CLEAR, Urine pH 6.0, Ur Specific [place] >= 1.030 , Urine Protein TRACE H, Urine Ketones TRACE H, Urine Nitrite NEG, Urine Bilirubin NEG, Urine Urobilinogen 4.0 H, Ur Leukocyte Esterase NEG, Ur Microscopic SEDIMENT EXAMINED, Urine RBC 15-25 H, Urine WBC 1-3 H, Ur Epithelial Cells RARE, Urine Mucus FEW, Urine Hemoglobin LARGE H, Urine Glucose NEG Assessment/Plan Assessment: Patient is 89 y M presented with dizziness and fall Recent resting in bed more often Palliative care for pancreatic cancer PMH: pancreatic cancer, hypertension, tremor, possible seizure, chronic back pain VS, Ph Ex at admission: BP 143/74, HI 70, RR 18, no fever Labs at admission: Hgb 14.8, MCV 100, others insignificant, BEP insignificant Imagings at admission: CT Head: No acute intracranial hemorrhage. Chronic changes related to the resection of a left parietal lobe mass. There is moderate global parenchymal volume loss and chronic small vessel ischemic changes within the periventricular white matter. CT Cervical spine: Chronic changes of diffuse idiopathic skeletal hyperostosis. Old laminoplasty changes extending from C3 to C7 are noted and there is a spinal fusion construct composed of lateral mass screws extending from C3 C7. No evidence of hardware failure. No evidence of acute cervical spinal fracture. Abdomen/Pelvic: New pancreatic head mass with marked ductal dilatation distal to this with atrophy of the gland. Findings are consistent with the given history of pancreatic carcinoma. Three tiny, new, low-attenuation liver lesions. Given the history, these could be suspicious for metastatic disease and follow up is recommended. These are too small to even consider a biopsy. Patient was admitted to telemetry floor for management of following conditions: Fall Most likely related to deconditioning as patient was more resting in bed recently. Patient denied use of extra pain medication. 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 No definite acute fracture. - will follow - dressing change daily Chronic medical conditions: Pancreatic cancer Patient was having palliative care. -We will continue home medication -Pain medication as needed Oliguria Was oliguric over the last 24 h, CT scan revealed enlarged prostate at admission, bladder scan no residual, no edema or crackles in exam, Cr normal, BUN increased, UA not significant except for CaOx cristals. We planned to get US of kidney, increased fluid rate. PRO BNP normal. US of kidney: No hydronephrosis. 2.8 cm simple left upper pole renal parapelvic cyst. patient had increase urine after hydration. DNR/DNI regular diet DVT ppx: ALPS and Lovenox Patient stable to be discharged. Problem List: 1. Pancreatic cancer 2. Fall 3. Physical deconditioning Pain Ratin Pain Location: abdominal, improved with pain meds Pain Goal: Pain 4 or less Pain Plan: continue current medication Tomorrow's Labs & Rationales: NONE discharge Discharge Plan Discharge Disposition: STR/NH Stable for Discharge? Yes Anticipated Discharge (Day): today Jordi Stoner 04/29/17 1142: Attending MD Review Statement Attending Statement Attending MD Statement: examined this patient, discuss w/resident/PA/[employer], agreed w/resident/PA/[employer] WORKER, discussed with family, reviewed EMR data (avail), discussed with nursing, discussed with case mgmt, reviewed images, amended to note Attending Assessment/Plan: 87 o/m with pmh of pancreatic cancer and 3 lesions in liver likely metastatic initially at hospice/comfort measures admitted here for profound weakness and general physical deconditoning. PT eval recommend STR. Home meds continued. Pain control. Nurse reported decreased urine output likely urinary retention, Cr normal. Improved urine output. Opiods prn pain. Trial of oxybutnin. 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 Add aspirin 81 mg daily at discharge. Anticipate dc to STR. Plan of care roberta.wed bedside.
[2017-04-29 09:34] LABS: ABSOLUTE BASOPHIL COUNT 0 /CUMM (0.0-0.2); ABSOLUTE EOSINOPHIL COUNT 0.1 /CUMM (0.0-0.7); ABSOLUTE GRANULOCYTE CT 5.9 /CUMM (1.4-6.5); ABSOLUTE LYMPH COUNT 1.6 /CUMM (1.2-3.4); ABSOLUTE MONOCYTE COUNT 0.5 /CUMM (0.10-0.60); BASOPHIL % 0.3 % (0.0-2.0); EOSINOPHIL % 1.8 % (0-5); GRANULOCYTE % 72.4 % (42.2-75.2); MEAN CORPUSCULAR HGB 33.8 PG (27.0-31.0); MEAN CORPUSCULAR VOLUME 99.4 FL (80.0-94.0); MEAN PLATELET VOLUME 8.4 FL (7.4-10.4); PLATELET COUNT 173 /CUMM (130-400); RBC DISTRIBUTION WIDTH 13.1 % (11.5-14.5); RED BLOOD CELL CT 3.87 /CUMM (4.70-6.10); WHITE BLOOD CELL COUNT 8.1 /CUMM (4.8-10.8)
[2017-04-29 09:35] LABS: HEMATOCRIT 38.5 % (42-52)
[2017-04-29 11:54] VITALS: BP 134/72
== END 2017-04-29 13:35 | DRG 948 ==
LOC: ERH 09:49 → ERHI 15:17 → 2NA 15:17 → ENRESERV 16:43 → ENTRNSPT 18:21 → 2NA 18:52 → CMPTRNSPT 19:04 → ENPENDDIS 04-29 10:18 → 2NA 04-29 13:35
PROVIDERS: Physician Assistant; Radiology Vascular & Interventional Radiology
DX: R53.1 Weakness (principal); R34 Anuria and oliguria; C78.7 Secondary malignant neoplasm of liver and intrahepatic bile duct; C25.9 Malignant neoplasm of pancreas, unspecified; K59.00 Constipation, unspecified; G40.909 Epilepsy, unspecified, not intractable, without status epilepticus; I45.2 Bifascicular block; R42 Dizziness and giddiness; I10 Essential (primary) hypertension; Z51.5 Encounter for palliative care; R26.81 Unsteadiness on feet; S53.402A Unspecified sprain of left elbow, initial encounter; W18.30XA Fall on same level, unspecified, initial encounter; Y92.009 Unspecified place in unspecified non-institutional (private) residence as the place of occurrence of the external cause; Z98.1 Arthrodesis status; M54.9 Dorsalgia, unspecified; Z91.81 History of falling; M19.022 Primary osteoarthritis, left elbow; Z66 Do not resuscitate
CPT/HCPCS: 2NASP; 36592; 73080-LT; 74177; 76775; 81001; 81003; 82436; 93005; 93010; 96361; 97112-GO; 97162-GP; 97530-GO; J0131; J1650; J3490; J7040